=== PATIENT | male | born 1970 | race Caucasian/White ===

== ENCOUNTER 2018-06-13 08:32 | Inpatient (IN) ==
[2018-06-13] MEDS ORDERED: HYDROmorphone PF Inj 2 MG/ML Vial IV.PUSH ONE (08:57)
--- NOTE | 2018-06-13 09:04 | ED ---
HPI General Chief Complaint: Abdominal Pain Stated Complaint: abd pain x 1 hr-seen here 5 days ago Time Seen by Provider: 06/13/18 08:50 History of Present Illness HPI narrative: This patient complains of abdominal pain. Location is epigastric. Severity is moderate to severe. Saw him 5 days ago for the same thing and extensive workup revealed hiatal hernia with some esophageal dilation and retained food debris. He saw general surgeon Dr. Migel Blank for this problem. This was 2 days ago. He says the doctor wanted to order some further testing and he was to receive a phone call about the specifics but he did not. Pain returns and persists so he came back. Not having fever. Not having vomiting. Symptoms worse after eating. No alleviating factors. Duration is 1 month Related Data Home Medications Medication Instructions Recorded Confirmed No Known Home Medications 06/13/18 06/13/18 Allergies Allergy/AdvReac Type Severity Reaction Status Date / Time No Known Allergies Allergy Verified 06/13/18 08:37 Review of Systems ROS: all other systems reviewed are negative PMFSH Social History Social History Substance History: No History of Abuse Second Hand Smoke Exposure: No Smoking Status: Never smoker How Often Do You Have a Drink Containing Alcohol: Never Immunization History Tetanus Immunization: <5 Years Hx Influenza Vaccine This Season: No Exam Narrative Exam Narrative: GENERAL: Well-nourished, well-developed patient with abdominal pain SKIN: Focused skin assessment reveals no rash and nodules. Skin is Warm and dry. HEAD: Atraumatic. Normocephalic. EYES: Pupils equal and round. No scleral icterus. No injection or drainage. ENT: No nasal bleeding or discharge. Mucous membranes pink and moist. NECK: Trachea midline. No JVD. CARDIOVASCULAR: Regular rate and rhythm. No murmur appreciated. RESPIRATORY: No accessory muscle use. Clear to auscultation. Breath sounds equal bilaterally. GASTROINTESTINAL: Abdomen soft, non-tender, nondistended. Hepatic and splenic margins not palpable. MUSCULOSKELETAL: No obvious deformities. No clubbing. No cyanosis. No edema. NEUROLOGICAL: Awake and alert. No obvious cranial nerve deficits. Motor grossly within normal limits. Normal speech. PSYCHIATRIC: Appropriate mood and affect; insight and judgment normal. Course Initial Documented Vital Signs Temperature 97.9 F 06/13/18 08:36 Pulse Rate 62 06/13/18 08:36 Respiratory Rate 20 06/13/18 08:36 Blood Pressure 157/96 H 10/04/18 08:36 Pulse Oximetry 100 06/13/18 08:36 Last Documented Vital Signs Temperature 97.9 F 06/13/18 08:36 Pulse Rate 76 06/13/18 11:05 Respiratory Rate 16 06/13/18 11:05 Blood Pressure 148/98 H 06/13/18 11:05 Pulse Oximetry 99 06/13/18 11:05 Medical Decision Making MDM Narrative Medical decision making narrative: IV placed and labs sent. I gave him a dose of pain and nausea medicine for symptom relief. After milligram of Dilaudid he has some improvement but still uncomfortable. This is a problem I do not think is going to go away without getting surgical repair. He has already had multiple ER visits. I reviewed the case in detail with Dr. Blank who is going to admit him to the hospital for operative repair. Does have dysphasia with some degree of esophageal obstruction. CBC and i- STAT are normal. Medical Screen Exam Complete: Yes Emergency Medical Condition: Yes Differential Diagnosis Differential Diagnosis: Differential diagnosis includes pancreatitis, biliary colic, hepatitis, GERD, peptic ulcer disease. Medical Records Medical records reviewed: Yes I reviewed the patient's medical records. I reviewed his workup from 5 days ago Lab Data Lab results reviewed: Yes I reviewed the patient's lab results. Lab results narrative: CBC and i-STAT normal Result diagrams: 06/13/18 09:00 06/13/18 09:00 Lab Results 06/13/18 06/13/18 06/13/18 Range/Units 09:00 09:00 09:00 CBC w Diff Auto diff final WBC 4.2 (4.0-11.0) th/mm3 RBC 5.10 (4.50-5.90) mil/mm3 Hgb 15.9 (13.0-17.0) gm/dL POC Hgb (Calc) Not Reportable Hct 45.3 (39.0-51.0) % POC Hct Not Reportable MCV 88.8 (80.0-100.0) fL MCH 31.2 (27.0-34.0) pg MCHC 35.2 (32.0-36.0) % RDW 13.6 (11.6-17.2) % Plt Count 201 (150-450) th/mm3 MPV 8.1 (7.0-11.0) fL Neut % (Auto) 57.7 (16.0-70.0) % Lymph % (Auto) 29.8 (9.0-44.0) % Wilkin % (Auto) 10.1 H (0.0-8.0) % Eos % (Auto) 1.9 (0.0-4.0) % Baso % (Auto) 0.5 (0.0-2.0) % Neut # (Auto) 2.5 (1.8-7.7) th/mm3 Lymph # (Auto) 1.2 (1.0-4.8) th/mm3 Wilkin # (Auto) 0.4 (0.0-0.9) th/mm3 Eos # (Auto) 0.1 (0.0-0.4) th/mm3 Baso # (Auto) 0.0 (0.0-0.2) th/mm3 WBC Differential . Differential Comment . PT 11.0 (9.8-11.6) sec INR 1.1 Ratio APTT 28.4 (24.3-30.1) sec POC Sodium 139 (137-144) mmol/L POC Potassium 4.5 (3.6-5.0) mmol/L POC Chloride 101 L (102-111) mmol/L POC BUN 22 H (5-21) mg/dL POC Creatinine 1.0 (0.6-1.3) mg/dL POC Glucose 92 (68-110) mg/dL Discharge Plan Discharge Disposition Patient Disposition: 30 Still Patient Discharge Details Diagnosis: Dysphagia, Esophageal hiatal hernia, Esophageal obstruction Physicians Team ED Provider: Kobi Flood Primary Care Provider: Primary Care Annabel Hare Attending Provider: Migel Blank Discharge Interventions Interventions: Vital Signs Last Done: 06/13/18 11:05 Status ED Status: Admitted Patient
[2018-06-13 09:10] LABS: Baso % (Auto) 0.5 % (0.0-2.0); Eos # (Auto) 0.1 th/mm3 (0.0-0.4); Eos % (Auto) 1.9 % (0.0-4.0); Hematocrit 45.3 % (39.0-51.0); Hemoglobin 15.9 gm/dL (13.0-17.0); Lymph # (Auto) 1.2 th/mm3 (1.0-4.8); Lymph % (Auto) 29.8 % (9.0-44.0); Mean Corpuscular HGB Conc 35.2 % (32.0-36.0); Mean Corpuscular Hemoglobin 31.2 pg (27.0-34.0); Mean Corpuscular Volume 88.8 fL (80.0-100.0); Mean Platelet Volume 8.1 fL (7.0-11.0); Mono # (Auto) 0.4 th/mm3 (0.0-0.9); Mono % (Auto) 10.1 % (0.0-8.0); Neut # (Auto) 2.5 th/mm3 (1.8-7.7); Neut % (Auto) 57.7 % (16.0-70.0); Platelet Count 201 th/mm3 (150-450); Red Cell Distribution Width 13.6 % (11.6-17.2); White Blood Count 4.2 th/mm3 (4.0-11.0)
[2018-06-13 09:28] LABS: Activated Partial Thrombo Time 28.4 sec (24.3-30.1); INR 1.1 Ratio
[2018-06-13 12:00] LABS: Alanine Aminotransferase 68 U/L (12-78); Albumin 4.1 g/dL (3.4-5.0); Anion Gap 9 meq/L (5-15); Aspartate Aminotransferase 37 U/L (15-37); Blood Urea Nitrogen 20 mg/dL (7-18); Chloride 106 meq/L (98-107); Glomerular Filtration Rate 77 mL/min (>89); Glucose,Random 91 mg/dL (74-106); Lipase 162 U/L (73-393); Potassium 4.8 meq/L (3.5-5.1); Sodium 141 meq/L (136-145)
[2018-06-13 12:03] LABS: Alkaline Phosphatase 65 U/L (45-117)
--- NOTE | 2018-06-13 14:32 | P.HPGS ---
History of Present Illness Service: NOTE FOR SURGICAL ATTENDING, DR. MADISON GREGORY General Surgery Primary Care Physician: No Primary Care Physician Chief Complaint: Abdominal pain; nausea History of Present Illness: This is a 47 year old male who is healthy who was seen in the office Sunday with Dr. Blank for evaluation for a hiatal hernia. He was going to be scheduled for a marshmallow test but that has not been done yet. The patient was doing well until yesterday when he developed acute onset of abdominal pain with nausea. He felt like food was "stuck in his throat." He went to the [place] ED and the patient was transferred to [facility]. - Diagnosis (1) Hiatal hernia Inpatient Certification: I certify that the inpatient services were ordered in accordance with Medicare regulations governing the order. This includes certification that hospital inpatient services are reasonable and necessary and in the case of services not specified as inpatient-only under 42 CFR 419.22(n), that they are appropriately provided as inpatient services in accordance to with the 2-midnight benchmark under 43 CFR 412.3(e) Plans for Post Hospital Care: Home Review of Systems All other systems reviewed negative except as stated in [facility] - History History Provided By: Patient - Medical History Medical History: Medical History (Last Reviewed 06/15/18 @ 15:36 by Madison Gregory MD) Alcoholism in recovery Head injuries Zygomatic arch fracture - Social History I have reviewed the patient's Social History: Yes - Tobacco History Second Hand Smoke Exposure: No Tobacco Use In Past 30 Days: No Smoking Status: Never smoker - Alcohol History How Often Do You Have a Drink Containing Alcohol: Never - Substance Use History Substance History: No History of Abuse - Immunization History Tetanus Immunization: <5 Years Hx Influenza Vaccine This Season: No Medications and Allergies Allergies Allergy/AdvReac Type Severity Reaction Status Date / Time No Known Allergies Allergy Verified 06/13/18 08:37 Home Medications Medication Instructions Recorded Confirmed Type No Known Home Medications 06/13/18 06/13/18 History Active Medications: Active Medications Sodium Chloride (Ns Flush) 2 ml IV.FLUSH PRN PRN PRN Reason: FLUSH AFTER USING IV ACCESS Exam Vital signs: Vital Signs 06/13/18 08:36 06/13/18 11:05 06/13/18 13:57 Temperature 97.9 F 97.3 F L Pulse Rate 62 76 55 L Respiratory Rate 20 16 16 Blood Pressure 157/96 H 148/98 H 147/86 H Pulse Oximetry 100 99 100 Intake & Output 06/12/18 06/13/18 06/13/18 18:59 06:59 18:59 Weight 76 kg Narrative: GENERAL: Pleasant 47 year old male sitting up in the chair in no acute distress. SKIN: Warm and dry. Multiple tattoos. HEAD: Atraumatic. Normocephalic. EYES: Pupils equal and round. No scleral icterus. No injection or drainage. ENT: No nasal bleeding or discharge. Mucous membranes pink and moist. NECK: Trachea midline. CARDIOVASCULAR: Regular rate and rhythm. RESPIRATORY: No accessory muscle use. Clear to auscultation. Breath sounds equal bilaterally. GASTROINTESTINAL: Abdomen soft, non-tender, nondistended. No visible scars of hernias. MUSCULOSKELETAL: Extremities without clubbing, cyanosis, or edema. No obvious deformities. NEUROLOGICAL: Awake and alert. No obvious cranial nerve deficits. Motor grossly within normal limits. Five out of 5 muscle strength in the arms and legs. Normal speech. PSYCHIATRIC: Appropriate mood and affect; insight and judgment normal. Results - Labs 06/13/18 09:00 06/13/18 09:00 Laboratory Results - last 24 hr 06/13/18 06/13/18 06/13/18 09:00 09:00 09:00 CBC w Diff Auto diff final WBC 4.2 RBC 5.10 Hgb 15.9 POC Hgb (Calc) Not Reportable Hct 45.3 POC Hct Not Reportable MCV 88.8 MCH 31.2 MCHC 35.2 RDW 13.6 Plt Count 201 MPV 8.1 Neut % (Auto) 57.7 Lymph % (Auto) 29.8 Lawrence % (Auto) 10.1 H Eos % (Auto) 1.9 Baso % (Auto) 0.5 Neut # (Auto) 2.5 Lymph # (Auto) 1.2 Lawrence # (Auto) 0.4 Eos # (Auto) 0.1 Baso # (Auto) 0.0 WBC Differential . Differential Comment . PT 11.0 INR 1.1 APTT 28.4 POC Sodium 139 Sodium 141 POC Potassium 4.5 Potassium 4.8 POC Chloride 101 L Chloride 106 Carbon Dioxide 26.0 Anion Gap 9 POC BUN 22 H BUN 20 H Creatinine 1.03 POC Creatinine 1.0 Estimated GFR 77 L POC Glucose 92 Random Glucose 91 Calcium 9.0 Total Bilirubin 0.7 AST 37 ALT 68 Alkaline Phosphatase 65 Total Protein 7.0 Albumin 4.1 Lipase 162 - Imaging Imaging: CT scan results CONCLUSION: 1. Large hiatal hernia containing a large portion of the stomach with marked distention of the distal esophagus. Recommend clinical correlation. 2. No definitive CT findings to explain patient's left lower quadrant abdominal pain. 3. Appendix is not directly visualized. However, no evidence for inflammatory change in the right lower quadrant. 4. Colonic diverticulosis. 5. 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 CT scan - abdomen: image reviewed CT scan - pelvis: image reviewed Caprini VTE Risk Assessment Caprini VTE Risk Assessment: No/Low Risk (score <= 1) VTE Pharmacological Exception Reason: Documented (EGD tomorrow ) Caprini Risk Assessment Model: Point Value = 1 Point Value = 2 Point Value = 3 Point Value = 5 Age 41-60 Minor surgery BMI > 25 kg/m2 Swollen legs Varicose veins or History of unexplained or recurrent spontaneous Oral contraceptives or hormone replacement Sepsis (< 1 month) Serious lung disease, including pneumonia (< 1 month) Abnormal pulmonary function Acute myocardial infarction Congestive heart failure (< 1 month) History of inflammatory bowel disease Medical patient at bed rest Age 61-74 Arthroscopic surgery Major open surgery (> 45 min) Laparoscopic surgery (> 45 min) Malignancy Confined to bed (> 72 hours) Immobilizing plaster cast Central venous access Age >= 75 History of VTE Family history of VTE Factor V Leiden Prothrombin [id number] Lupus anticoagulant Anticardiolipin antibodies Elevated serum homocysteine Heparin-induced thrombocytopenia Other congenital or acquired thrombophilia Stroke (< 1 month) Elective arthroplasty Hip, pelvis, or leg fracture Acute spinal cord injury (< 1 month) Prophylaxis Regimen: Total Risk Factor Score Risk Level Prophylaxis Regimen 0-1 Low Early ambulation 2 Moderate Order ONE of the following: *Sequential Compression Device (SCD) *Heparin 5000 units SQ BID 3-4 Higher Order ONE of the following medications: *Heparin 5000 units SQ TID *Enoxaparin/Lovenox 40 mg SQ daily (WT < 150 kg, CrCl > 30 mL/min) *Enoxaparin/Lovenox 30 mg SQ daily (WT < 150 kg, CrCl > 10-29 mL/min) *Enoxaparin/Lovenox 30 mg SQ BID (WT < 150 kg, CrCl > 30 mL/min) AND/OR *Sequential Compression Device (SCD) 5 or more Highest Order ONE of the following medications: *Heparin 5000 units SQ TID (Preferred with Epidurals) *Enoxaparin/Lovenox 40 mg SQ daily (WT < 150 kg, CrCl > 30 mL/min) *Enoxaparin/Lovenox 30 mg SQ daily (WT < 150 kg, CrCl > 10-29 mL/min) *Enoxaparin/Lovenox 30 mg SQ BID (WT < 150 kg, CrCl > 30 mL/min) AND *Sequential Compression Device (SCD) Assessment and Plan - Assessment (1) Hiatal hernia Code(s): K44.9 - Diaphragmatic hernia without obstruction or gangrene Status: Acute Plan: 47 year old male with hiatal hernia -Plan for EGD in the morning -IVF -Pain control -NPO -Will likely need repair of hiatal hernia prior to DC - Plan Discussed Condition With: Dr. Gregory and Dr. Abhay German - Attending Attestation NOTE FOR SURGICAL ATTENDING, DR. MADISON GREGORY I agree with above assessment and plan. The exam, history, and the medical decision-making described in the above note were completed with the assistance of the mid-level provider. I reviewed and agree with the findings presented. I attest that I had a [id number] encounter with the patient on the same day, and personally performed and documented my assessment and findings in the medical record. The following services were provided during this hospital visit: Chart data review, vital sign assessments/reviewing monitor data Review of consultations notes if present. Medication orders/review and/or management Ordering and/or reviewing lab tests Ordering and/or interpreting/reviewing x-rays and/or diagnostic studies Care of the patient and discussion of the patient with the care team Documentation time To help prompt me to consider important information that might be impacting today's encounter and assessment, Information from prior notes written by myself or my colleagues may have been "brought forward/copy and pasted" into today's note. H&P: Quality - VTE Deep Vein Thrombosis/Pulmonary Embolism Present on Admission: No
[2018-06-13] MEDS ORDERED: Morphine Sulfate Inj 2 MG/ML Vial IV.PUSH PRN (14:42)
[2018-06-13] MEDS ORDERED: Morphine Inj 4 MG/ML Vial IV.PUSH PRN (14:43)
[2018-06-13] MEDS: Sod Chloride 0.9% Inj 1,000 ML IV.CONT SCH (16:08)
[2018-06-13] MEDS: Pantoprazole Inj 40 MG Vial IV.PUSH SCH (20:50)
[2018-06-14] MEDS: Sod Chloride 0.9% Inj 1,000 ML IV.CONT SCH ×4 (04:46→22:05)
[2018-06-14] MEDS: Pantoprazole Inj 40 MG Vial IV.PUSH SCH ×3 (07:19→20:06)
--- NOTE | 2018-06-14 08:16 | GIPROC ---
[facility] [address] [facility]. [facility] [place], [address] EGD PROCEDURE REPORT EXAM DATE: 06/14/2018 PATIENT NAME: Andrew German MR #: [id number] BIRTHDATE: 1970 ATTENDING: Migel Blank MD ORDER #: [id number] SHOWCASE TRIMMER: Doris Soares and Rosie Wells STATUS: inpatient INDICATIONS: The patient is a 47 yr old male here for an EGD due to heartburn, chest pain, and Hiatal hernia PROCEDURE PERFORMED: EGD, diagnostic MEDICATIONS: None and Per Anesthesia. TOPICAL ANESTHETIC: none CONSENT: The patient understands the risks and benefits of the procedure and understands that these risks include, but are not limited to: sedation, allergic reaction, infection, perforation and/or bleeding. Alternative means of evaluation and treatment include, among others: physical exam, x-rays, and/or surgical intervention. The patient elects to proceed with this endoscopic procedure. medical equipment was checked for proper function. Hand hygiene and appropriate measures for infection prevention was taken. After the risks, benefits and alternatives of the procedure were thoroughly explained, Informed consent was verified, confirmed and timeout was successfully executed by the treatment team. The patient was anesthetized with topical anesthesia and the Pentax EG-[id number] endoscope was introduced through the mouth and advanced to the first portion of the duodenum. No evidence of ischemia noted. Large paraesophageal hiatal herrnia majority of stomach involved. Retroflexed views revealed a hiatal hernia The gastroscope was then slowly withdrawn and removed. ESOPHAGUS: A large hiatal hernia was noted. ADVERSE EVENTS: There were no complications. IMPRESSIONS: 1. Large hiatal hernia 2. Retroflexed views revealed a hiatal hernia RECOMMENDATIONS: 1. Anti-reflux regimen 2. Surgery 3. Admit to hospital PATIENT CONDITION: fair DISPOSITION: Inpatient REPEAT EXAM: NONE Migel Blank MD eSigned: Migel Blank MD 06/14/2018 8:16 AM cc: PATIENT NAME: Andrew German MR#: [id number]
[2018-06-15] MEDS: Sod Chloride 0.9% Inj 1,000 ML IV.CONT SCH ×4 (06:05→22:10)
[2018-06-15] MEDS: Pantoprazole Inj 40 MG Vial IV.PUSH SCH ×2 (09:23→20:41)
--- NOTE | 2018-06-15 15:25 | P.PNGS ---
Subjective Patient reports: no new complaints, feels better, pain is less Interval history: DAILY PROGRESS NOTE FOR SURGICAL ATTENDING, DR. MADISON TAYLOR Physical Exam Vital signs: Vital Signs 06/14/18 16:00 06/14/18 20:00 06/15/18 00:00 Temperature 97.6 F 97.4 F L 97.5 F L Pulse Rate 70 68 72 Respiratory Rate 18 17 18 Blood Pressure 117/64 129/84 118/63 Pulse Oximetry 98 98 97 06/15/18 08:00 06/15/18 12:00 Temperature 97.6 F 97.9 F Pulse Rate 65 63 Respiratory Rate 18 19 Blood Pressure 132/88 131/78 Pulse Oximetry 95 99 Intake & Output 06/14/18 06/15/18 06/15/18 18:59 06:59 18:59 Intake Total 1692 / 1692 2480 / 2480 999 / 999 Balance 1692 / 1692 2480 / 2480 999 / 999 Weight 76.7 kg Intake: IV 300 / 300 1999 1000 / 999 NS Inj 1,000 ML @ 125 mls/hr IV 1999 .CONT .Q8H [facility] Rx#:[id number] LR 1000 mL Inj 1,000 ML @ 30 300 / 300 mls/hr IV.SIG .Q24H [facility] Rx#: [id number] Oral 1192 / 1192 480 / 480 Anesthesia Amount 200 / 200 Other: # Voids 6 3 Date of Last Bowel Movement 06/13/18 # Bowel Movements 2 Narrative: GENERAL: Pleasant 47 year old male sitting up in the chair in no acute distress. SKIN: Warm and dry. Multiple tattoos. HEAD: Atraumatic. Normocephalic. EYES: Pupils equal and round. No scleral icterus. No injection or drainage. ENT: No nasal bleeding or discharge. Mucous membranes pink and moist. NECK: Trachea midline. CARDIOVASCULAR: Regular rate and rhythm. RESPIRATORY: No accessory muscle use. Clear to auscultation. Breath sounds equal bilaterally. GASTROINTESTINAL: Abdomen soft, non-tender, nondistended. No visible scars of hernias. MUSCULOSKELETAL: Extremities without clubbing, cyanosis, or edema. No obvious deformities. NEUROLOGICAL: Awake and alert. No obvious cranial nerve deficits. Motor grossly within normal limits. Five out of 5 muscle strength in the arms and legs. Normal speech. PSYCHIATRIC: Appropriate mood and affect; insight and judgment normal. Results - Labs 06/13/18 09:00 06/13/18 09:00 - Imaging Imaging: CT scan of abdomen and pelvis CONCLUSION: 1. Large hiatal hernia containing a large portion of the stomach with marked distention of the distal esophagus. Recommend clinical correlation. 2. No definitive CT findings to explain patient's left lower quadrant abdominal pain. 3. Appendix is not directly visualized. However, no evidence for inflammatory change in the right lower quadrant. 4. Colonic diverticulosis. 5. 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 Additional studies: EGD results ESOPHAGUS: A large hiatal hernia was noted. ADVERSE EVENTS: There were no complications. IMPRESSIONS: 1. Large hiatal hernia 2. Retroflexed views revealed a hiatal hernia RECOMMENDATIONS: 1. Anti-reflux regimen 2. Surgery 3. Admit to hospital PATIENT CONDITION: fair DISPOSITION: Inpatient REPEAT EXAM: NONE Migel Blank MD Assessment and Plan - Assessment (1) Hiatal hernia Code(s): K44.9 - Diaphragmatic hernia without obstruction or gangrene Status: Acute Plan: 47 year old male with hiatal hernia -IVF -Pain control Plan laparoscopic scopic hiatal hernia repair by Dr. Blank on Sunday - Attending Attestation NOTE FOR SURGICAL ATTENDING, DR. MADISON TAYLOR I attest that I had a [id number] encounter with the patient on the same day, and personally performed and documented my assessment and findings in the medical record. The following services were provided during this hospital visit: Chart data review, vital sign assessments/reviewing monitor data Review of consultations notes if present. Medication orders/review and/or management Ordering and/or reviewing lab tests Ordering and/or interpreting/reviewing x-rays and/or diagnostic studies Care of the patient and discussion of the patient with the care team Documentation time To help prompt me to consider important information that might be impacting today's encounter and assessment, Information from prior notes written by myself or my colleagues may have been "brought forward/copy and pasted" into today's note.
[2018-06-16] MEDS: Sod Chloride 0.9% Inj 1,000 ML IV.CONT SCH ×2 (05:52→20:47)
[2018-06-16] MEDS: Pantoprazole Inj 40 MG Vial IV.PUSH SCH ×2 (08:18→20:46)
--- NOTE | 2018-06-16 11:20 | FL ---
EXAM DATE: 06/16/2018 12:00 AM EDT AGE/SEX: 47 years / Male INDICATIONS: Large hiatal hernia. CLINICAL DATA: This is the patient's initial encounter. Patient reports that signs and symptoms have been present for 1 week and indicates a pain score of 2/10. MEDICAL/SURGICAL HISTORY: None. None. COMPARISON: CT from 06/07/2018. FLUORO TIME: 1.2 minutes. IMAGE COUNT: 15 FINDINGS: Esophagus appears normal. The GE junction is seen just above the left hemidiaphragm. There is a moder ate paraesophageal hernia containing of the upper aspect of the stomach. Approximately 40-50% of the stomach is above the hemidiaphragm. The gastric mucosa appeared grossly intact. The duodenum appears normal. CONCLUSION; Moderate paraesophageal gastric hernia. Electronically signed by: Anselmo Sweet MD 06/16/2018 11:18 AM EDT
--- NOTE | 2018-06-16 17:43 | P.PN ---
Subjective Interval history: Feels well; tolerating liquids with no pain. Surgery planned for tomorrow. Physical Exam Vital signs: Vital Signs 06/15/18 20:00 06/16/18 00:00 06/16/18 04:00 Temperature 98.2 F 97.7 F 98.1 F Pulse Rate 66 62 68 Respiratory Rate 18 18 Blood Pressure 146/84 H 118/63 124/62 Pulse Oximetry 98 95 97 06/16/18 08:00 06/16/18 12:00 06/16/18 16:00 Temperature 98.1 F 98.0 F 97.9 F Pulse Rate 63 63 72 Respiratory Rate 18 18 18 Blood Pressure 131/84 127/77 132/84 Pulse Oximetry 98 98 97 Intake & Output 06/15/18 06/16/18 06/16/18 18:59 06:59 18:59 Intake Total 2674 / 2674 2486 / 2486 Balance 2674 / 2674 2486 / 2486 Weight 76.7 kg Intake: IV 1474 / 1474 1526 / 1526 NS Inj 1,000 ML @ 125 mls/hr IV 1474 / 1474 1526 / 1526 .CONT .Q8H [facility] Rx#:[id number] Oral 1200 / 1200 960 / 960 Other: # Voids 4 3 Date of Last Bowel Movement 06/13/18 - Routine Abdominal Exam Present: soft Comments: Benign and nontender Results - Labs CBC & Chem 7: 06/13/18 09:00 06/13/18 09:00 - Imaging Upper GI: FINDINGS: Esophagus appears normal. The GE junction is seen just above the left hemidiaphragm. There is a moderate paraesophageal hernia containing of the upper aspect of the stomach. Approximately 40-50% of the stomach is above the hemidiaphragm. The gastric mucosa appeared grossly intact. The duodenum appears normal. CONCLUSION; Moderate paraesophageal gastric hernia. Assessment and Plan - Assessment (1) Hiatal hernia Code(s): K44.9 - Diaphragmatic hernia without obstruction or gangrene Status: Acute Plan: Reduction and repair of hiatal hernia with probable mesh and wrap. Discussed with patient today. He is anxious to proceed. Discussed with OR staff and Dr. Blank; they are prepared to proceed with surgery tomorrow. - Attending Attestation I attest that I had a [id number] encounter with the patient on the same day, and personally performed and documented my assessment and findings in the medical record. The following services were provided during this hospital visit: Chart data review, vital sign assessments/reviewing monitor data Review of consultation notes if present Medication orders/review and/or management Ordering and/or reviewing lab tests Ordering and/or interpreting/reviewing x-rays and/or diagnostic studies Care of the patient and discussion of the patient with the care team Documentation time To help prompt me to consider important information that might be impacting today's encounter and assessment, Information from prior notes written by myself or my colleagues may have been "brought forward/copy and pasted" into today's note.
[2018-06-16] MEDS ORDERED: Chlorhexidine Gluconate 2% 1 Pack (2 Cloths) TOPICAL ONE (23:12)
[2018-06-16] MEDS ORDERED: Sodium Chlor 0.9% Inj 500 ML IV.SIG SCH (23:45)
[2018-06-17] MEDS: Sod Chloride 0.9% Inj 1,000 ML IV.CONT SCH ×3 (06:55→15:54)
[2018-06-17] MEDS ORDERED: Bupivacaine/Epinephrine Inj 0.25% 50 ML Vial ONE (07:28)
[2018-06-17] MEDS ORDERED: Sugammadex Inj 200 MG/2 ML Vial IV.PUSH ONE (07:50)
[2018-06-17] MEDS ORDERED: HYDROmorphone PF Inj 2 MG/ML Vial ONE (07:51)
[2018-06-17] MEDS: Pantoprazole Inj 40 MG Vial IV.PUSH SCH ×2 (08:04→21:12)
[2018-06-17] MEDS ORDERED: Lidocaine PF 1% Inj 5 ML Syringe OTHER ONE (08:28)
[2018-06-17] MEDS ORDERED: Phenylephrine/NS 1000 MCG/10ML Syringe IV.PUSH ONE (08:28)
[2018-06-17] MEDS ORDERED: ceFAZolin 2 GM Premix Inj 2 GM/50 ML PIGGYBACK IV.SIG ONE (08:43)
--- NOTE | 2018-06-17 11:36 | P.OP ---
- Preoperative Diagnosis (1) Paraesophageal hernia - Postoperative Diagnosis (1) Paraesophageal hernia Date of procedure: 06/17/18 Procedure: lap paraesophageal hernia repair toupet fundoplication Anesthesia: GETA Surgeon: Migel Blank MD Lace Paper Machine Operator: Edilson Weldon Estimated blood loss (mL): 10 Pathology: none sent Operation and Findings: large paraesophageal hernia
[2018-06-17] MEDS ORDERED: fentaNYL Citrate Inj 100 MCG/2 ML Ampul ONE (11:52)
[2018-06-17] MEDS ORDERED: *morphine SULFATE 4 MG/ML PERIprocedure ONLY ONE (12:06)
--- NOTE | 2018-06-17 14:12 | XR ---
EXAM DATE: 06/17/2018 12:00 AM EDT AGE/SEX: 47 years / Male INDICATIONS: Chest discomfort; hiatal hernia. CLINICAL DATA: This is the patient's initial encounter. Patient reports that signs and symptoms have been present for 1 day and indicates a pain score of 2/10. MEDICAL/SURGICAL HISTORY: None. None. COMPARISON: No prior exams available for comparison. FINDINGS: A single AP view of the chest demonstrates bibasilar densities. Diminished lung volumes. The cardiom ediastinal contours are unremarkable. Osseous structures are intact. Subcutaneous emphysema bilatera lly. CONCLUSION: 1. Diminished lung volumes with bibasilar densities likely atelectasis. 2. Subcutaneous emphysema bilaterally. Electronically signed by: Freddy Hernandez MD 06/17/2018 2:11 PM EDT
[2018-06-18] MEDS: Sod Chloride 0.9% Inj 1,000 ML IV.CONT SCH ×3 (00:37→08:42)
[2018-06-18] MEDS: Pantoprazole Inj 40 MG Vial IV.PUSH SCH (08:41)
--- NOTE | 2018-06-18 10:48 | P.PNGS ---
Subjective Interval history: Up to chair Has been walking in the hallways C/o shoulder pain Physical Exam Vital signs: Vital Signs 06/17/18 11:43 06/17/18 12:00 06/17/18 12:15 Temperature 97.6 F 97.6 F Pulse Rate 100 H 96 H 73 Respiratory Rate 15 17 15 Blood Pressure 130/75 126/77 123/70 Pulse Oximetry 94 L 95 95 06/17/18 12:35 06/17/18 12:50 06/17/18 16:00 Temperature 97.1 F L 97.6 F 97.3 F L Pulse Rate 67 106 H 76 Respiratory Rate 17 19 18 Blood Pressure 113/68 133/101 H 133/76 Pulse Oximetry 97 97 97 06/17/18 20:00 06/18/18 00:00 06/18/18 04:00 Temperature 98.0 F 98 F 97.6 F Pulse Rate 74 81 67 Respiratory Rate 17 17 17 Blood Pressure 138/78 150/83 H 134/92 H Pulse Oximetry 98 98 95 06/18/18 08:00 Temperature 98.4 F Pulse Rate 71 Respiratory Rate 18 Blood Pressure 140/89 Pulse Oximetry 95 Intake & Output 06/17/18 06/18/18 06/18/18 18:59 06:59 18:59 Intake Total 2725 / 2725 1480 / 1480 1000 / 1000 Output Total 425 / 425 Balance 2300 / 2300 1480 / 1480 1000 / 1000 Weight 76.2 kg Intake: IV 2150 / 2150 1000 / 1000 1000 / 1000 NS Inj 1,000 ML @ 125 mls/hr IV 1000 / 1000 1000 / 1000 1000 / 1000 .CONT .Q8H [facility] Rx#:[id number] LR 1000 mL Inj 1,000 ML @ 30 1000 / 1000 mls/hr IV.SIG .Q24H [facility] Rx#: [id number] Ancef 2 GM Premix Inj 2 gm In 50 / 50 50 ml @ 0 mls/hr IV.SIG .[facility] Rx#:[id number] Flagyl 500 MG Inj 100 ML @ 0 100 / 100 mls/hr IV.SIG .[facility] Rx#: [id number] Oral 575 / 575 480 / 480 Output: Estimated Blood Loss 25 / 25 Urine Amount (Catheter) 400 / 400 Indwelling Urethral Catheter 400 / 400 Other: # Voids 4 2 Date of Last Bowel Movement 06/17/18 # Bowel Movements 1 Narrative: Alert and awake sitting up in the chair Abd: lap sites c/d/i; abdomen soft - Urinary Catheter Management Indwelling Urethral Catheter Cath placed during this visit: yes, but has since been removed by the nurse Reason for continuing: Hourly intake/output Insertion date: 06/17/18 Insertion time: 08:45 Removal date: 06/17/18 Removal time: 11:34 Results - Labs 06/13/18 09:00 06/13/18 09:00 - Imaging Imaging: ITS Impressions Chest X-Ray 06/17/18 00:00 CONCLUSION: 1. Diminished lung volumes with bibasilar densities likely atelectasis. 2. Subcutaneous emphysema bilaterally. Assessment and Plan - Assessment (1) Hiatal hernia Code(s): K44.9 - Diaphragmatic hernia without obstruction or gangrene Status: Acute Plan: 47 year old male with hiatal hernia -POD1 lap hiatal hernia repair -Advance to full liquids -DC IVF -Pain control -Possible DC today after dinner - Attending Attestation doing well patient seen at bedside doing well tolerating liquids d/c planning The exam, history, and the medical decision-making described in the above note were completed with the assistance of the mid-level provider. I reviewed and agree with the findings presented. I attest that I had a [id number] encounter with the patient on the same day, and personally performed and documented my assessment and findings in the medical record.
--- NOTE | 2018-06-18 13:14 | XR ---
EXAM DATE: 06/18/2018 12:00 AM EDT AGE/SEX: 47 years / Male INDICATIONS: Follow up subcutaneous emphysema, post op hiatal hernia repair. CLINICAL DATA: This is the patient's subsequent encounter. Patient reports that signs and symptoms h ave been present for 2 days and indicates a pain score of 0/10. MEDICAL/SURGICAL HISTORY: None. . hiatal hernia repair COMPARISON: [facility] [place], CHEST 1V SINGLE AP, 06/17/2018. . FINDINGS: A single AP view of the chest demonstrates the lungs to be symmetrically aerated without evidence of mass, consolidative infiltrate or effusion. There is mild patchy opacity remaining in the lung bases left greater than right. The cardiomediastinal contours are unremarkable. Osseous structures are int act. Free air is now noted under the right hemidiaphragm. Subcutaneous emphysema is again noted over both upper chest koo. There is no visualized pneumothorax. CONCLUSION: 1. Free air is now noted under the right hemidiaphragm is present with the recent abdominal surgery. 2. Subcutaneous emphysema is again noted over both upper chest koo with no visualized pneumothorax . 3. Patchy opacity remains at the lung bases most characteristic of atelectasis. Electronically signed by: Doug Soto MD 06/18/2018 1:13 PM EDT
[2018-06-18 16:46] VITALS: BP 149/84; PULSE 73; RESP 19; TEMP 97.9; O2SAT 96
--- NOTE | 2018-06-19 21:13 | MP ---
cc: Migel Blank MD DATE OF OPERATION: 06/17/2018 PREOPERATIVE DIAGNOSIS: Large paraesophageal hiatal hernia. POSTOPERATIVE DIAGNOSIS: Large paraesophageal hiatal hernia. PROCEDURE PERFORMED: 1. Laparoscopic paraesophageal hiatal hernia repair. 2. Toupet fundoplication. SURGEON: Migel Blank MD DAG SPRAYER: Dr. Edilson Garrett. Dr. Edilson Garrett was needed due to the complexity of the case. Dr. Garrett assisted with camera control and retraction. ANESTHESIA: GETA. IV FLUIDS: See anesthesia sheet. ESTIMATED BLOOD LOSS: 10 mL. DRAINS: None. COMPLICATIONS: None. WOUND CLASSIFICATION: Clean. FINDINGS: Very large paraesophageal hernia with approximately 60% of stomach was in chest cavity. Good hemostasis. Tension-free reduction of stomach. SPECIMENS: None. INDICATIONS FOR PROCEDURE: The patient is a 47-year-old male who presents to the emergency department initially with history of a paraesophageal hiatal hernia. The patient had a hernia for approximately a year and a half, although in the last several months, it has gotten acutely worse. The patient was initially scheduled for planning for elective repair. However, due to the severity of symptoms and decreased p.o. intake and pain association, he came to the emergency department. Decision was made for operative intervention including laparoscopic paraesophageal hernia repair and reduction. The patient underwent initially endoscopy without evidence of ischemia, but with findings of a large paraesophageal hiatal hernia defect. DETAILS OF PROCEDURE: The patient was taken to the operating suite, placed in supine position. He was prepped and draped in usual sterile fashion after induction of general endotracheal anesthesia. Brief timeout done stating correct patient, procedure, and surgical site. We all were in agreement with this. Attention was directed to the superior umbilicus. An 11 cm just distal to the xiphoid just to the right of midline, a local anesthetic was injected. Stab robby incision was made with a #11 blade. The Optiview 5 mm was entered into the abdomen safely and insufflated to 15 mmHg pneumoperitoneum. On the cursory inspection, no evidence of injury. Again, examination of the hiatus noted a significant portion of the stomach retained in the chest. Several of the ports were placed, including bilateral subcostal 5 mm ports done under direct visualization. The right subcostal midclavicular port was actually placed as 12 mm port. A right lateral subcostal port was placed for 5 mm for liver retraction and a left lateral subcostal port was placed for freezer assistant. Dr. Garrett assisted in camera control and retraction and assistance with the case. The liver retractor Bridgette Flex was placed elevating the left lobe of the liver. The patient was placed in reverse Trendelenburg. The pars flaccida was incised circumferentially and the left and right crura were defined using Harmonic scalpel. The hernia sac was dissected and reduction of the stomach into the abdominal cavity was done. Once the left and right crura were fully defined and Harmonic scalpel was used to preclude the crura off of any attachments. A 1/2-inch [place] drain was obtained and placed around the esophagus in order to facilitate retraction. The esophagus was dissected up into the thoracic cavity. Good mobilization again to help in reducing the stomach into the abdominal cavity. The anterior and posterior vagus nerves were identified and protected. Short gastric vessels along the greater curvature of the stomach were taken down using Harmonic scalpel. This was done up to left letty and again assisted in mobilization. The hernia sac was actually completely reduced and removed from the abdominal wall cavity through the 12 mm port. NG tube was placed just to decompress and suction the stomach for assisting in visualization. Next, the paraesophageal hernia was repaired using 0 silk sutures in a [id number] fashion to reapproximate the crura. This was done both posteriorly and with x3 sutures and then 1 suture placed anterior for this. A Toupet fundoplication was done. The fundus of the stomach was grasped and brought posteriorly to do a partial 70-degree wrap of the esophagus. This was attached. Proximal suture was done with a 2-0 silk suture to the esophagus, including a portion of crura and stomach fundus. Two other sutures placed just distal to this again to facilitate a partial wrap on the right side. The left side was then addressed and similarly proximal suture was done to encompass partial fundus, esophagus, and crura on the left side as well for a proximal suture. Two other sutures also placed distally to this in order to completion of the wrap. The wrap noted to be under no tension and laid freely within the abdominal cavity. The paraesophageal hernia repair noted to be nice and floppy and not too snug as well. Next, the Bridgette Flex was removed from the abdomen. The 12 mm port was closed with 0 Vicryl transfascial suture done with a suture passer device. Pneumoperitoneum was removed. All the ports were removed. A 4-0 Monocryl was done to all the subcuticular incisions. A sterile dressing was placed including Mastisol and Steri-Strips. The patient tolerated the procedure well with no intraoperative complications. All lap and instrument counts were correct at the end of the procedure. The patient was extubated and taken stable to the PACU. Migel Blank MD LSN/sv , 07:33 PM , 07:48 PM
--- NOTE | 2018-07-02 00:20 | MD ---
cc: Migel Blank MD DATE OF DISCHARGE: 06/18/2018 ADMISSION DIAGNOSIS: Abdominal pain and large paraesophageal hiatal hernia. DISCHARGE DIAGNOSIS: Abdominal pain and large paraesophageal hiatal hernia. PROCEDURES PERFORMED: 1. Laparoscopic paraesophageal hiatal hernia repair. 2. Toupet fundoplication on 06/17/2018. HOSPITAL COMPLICATIONS: None. CONSULTATIONS: None. BRIEF HISTORY: The patient is a 47-year-old male who presented with abdominal pain, nausea and vomiting and tolerating liquids. He was seen in the office with attempted workup and scheduled for a surgical procedure. However, he developed acute onset of abdominal pain and decreased p.o. intake, necessitating him coming to the emergency department for further evaluation. He was noted to have a large paraesophageal hiatal hernia with 60% of the stomach in the patient's chest. Therefore, decision was made for operative intervention including laparoscopic reduction of large paraesophageal hiatal hernia and a Tashi fundoplication. He underwent the procedure without issue. Postoperatively, contained within his chest. HOSPITAL COURSE: The patient came again complaining of significant epigastric pain. He had a prior workup with CT findings confirming a large paraesophageal hiatal hernia. Decision was made for scheduling of operative intervention for which the patient underwent laparoscopic large paraesophageal hiatal hernia repair with reduction of stomach and closure and repair of hiatal hernia defect. There were no complications during the procedural case. He postoperatively was admitted to the floor and placed on DVT prophylaxis, pain control, IV fluids. He was advanced to full diet and tolerated liquids well. He had no postoperative complication. He was discharged on 06/18/2018. He was appropriately tolerating a diet. He was ambulating on his own. He had controlled with p.o. pain medication and was having bowel function. DISCHARGE DISPOSITION: Stable. DISCHARGE INSTRUCTIONS: The patient will follow up with Dr. Blank in 1 week. He is to maintain a full liquid diet with protein shakes for 2 weeks. He was told to come to the emergency department if feeling excessive uncontrolled nausea, vomiting, extreme severe pain, fever greater than 101, any evidence of infections at incision sites. He is to do no heavy lifting and he is okay to shower with no bathtubs. MD JACQUI Harden/rosana Padilla: 07/01/2018, 12:06 PM , 12:18 PM
== END 2018-06-18 19:27 | disposition home or self-care (01) ==
LOC: PHED 08:32 → PHEDA 11:10 → N07 13:44
PROVIDERS: ADMIT Surgery; ATTEND Surgery
PROC: PANENDO (2018-06-14 08:00)